=== PATIENT | male | born 1970 | race Caucasian/White ===

== ENCOUNTER 2017-09-07 18:53 | Emergency (ER) | payer OTHER ==
[~2017-09-07] VITALS: Wt 74.8 kg
[~2017-09-07 18:53] MED LIST: ASPIRIN FOR CHI81 MG PO; ATARAX,VISTARIL50 MG PO; BRILINTA90 M1 PO; CARBIDOPA/LEVOD1 TA1 PO; COZAAR50 M1 PO; CYCLOBENZAPRINE10 MG PO; LIPITOR80 MG PO; MEDROL DOSEPAK4 MG PO; METHADONE HCL10 MG PO; METOPROLOL SUCC25 M2 PO; NAPROSYN500 MG PO; PAXIL20 M1 PO; PREDNISONE5 MG PO; ZOFRAN4 MG PO
[2017-09-07 19:57] LABS: BILIRUBIN NEGATIVE (NEGATIVE); BLOOD NEGATIVE (NEGATIVE); CLARITY SL CLOUDY (CLEAR); COLOR YELLOW (YELLOW); GLUCOSE NEGATIVE (NEGATIVE); KETONE NEGATIVE (NEGATIVE); LEUKO ESTERASE NEGATIVE (NEGATIVE); NITRITE NEGATIVE (NEGATIVE); PH 5.5 (5.0-9.0); UROBILINOGEN 0.2 E.U./dl (0.2-1.0)
[2017-09-07 20:05] LABS: BACTERIA TRACE; EPITHELIAL CELLS 0-2; WBC 0-2 wbc/hpf (0-5)
[2017-09-07 20:07] LABS: URINE AMPHETAMINES < 1000 (1000ng/ml); URINE BARBITURATES < 200 (200ng/ml); URINE BENZODIAZEPINES < 200 (200ng/ml); URINE CANNABINOIDS (THC) < 50 (50ng/ml); URINE COCAINE < 300 (300ng/ml); URINE METHADONE < 300 (300ng/ml); URINE OPIATES > 300 (300ng/ml)
[2017-09-07 20:08] LABS: URINE PHENCYCLIDINE < 25 (25ng/ml)
[2017-09-07] MEDS ORDERED: Orphenadrine C100 MG PO (21:55)
== END 2017-09-07 22:07 | disposition home or self-care (01) ==
LOC: ED 18:53
PROVIDERS: Emergency Medicine Emergency Medical Services
DX: S16.1XXA Strain of muscle, fascia and tendon at neck level, initial encounter (principal); G89.29 Other chronic pain; M79.1 Myalgia; F17.200 Nicotine dependence, unspecified, uncomplicated; F11.10 Opioid abuse, uncomplicated; I25.2 Old myocardial infarction; Z98.890 Other specified postprocedural states; Z90.89 Acquired absence of other organs; Z79.82 Long term (current) use of aspirin; Z79.899 Other long term (current) drug therapy; X58.XXXA Exposure to other specified factors, initial encounter; Y93.89 Activity, other specified; Y92.89 Other specified places as the place of occurrence of the external cause; Y99.9 Unspecified external cause status